=== PATIENT | female | born 1975 | race African-American/Black ===

== ENCOUNTER 2020-08-31 04:47 | Day surgery (SDC) | payer BC, OTHER ==
[2020-08-27 19:07] VITALS: BMI 23.8
[2020-08-31] MEDS ORDERED: LIDOCAINE HCL 1%, 10 MG/ML (20ML VIAL) ONE (08:53)
[2020-08-31] MEDS ORDERED: MIDAZOLAM HCL 2 MG/2 ML SINGLE DOSE VIAL ONE ×2 (09:31)
[2020-08-31] MEDS ORDERED: ceFAZolin 2 GRAM PREMIX BAG IVPB ONE (09:40)
[2020-08-31] MEDS ORDERED: LIDOCAINE HCL 1%, 10 MG/ML (20ML VIAL) ID ONE (09:57)
[2020-08-31] MEDS ORDERED: BUPIVACAINE HCL/PF 0.5% (5MG/ML) 10 ML VIAL IJ ONE (09:58)
[2020-08-31] MEDS ORDERED: ACETAMINOPHEN 1000 MG/100 ML VIAL (NON FORMULARY) IVPB ONE ×2 (10:35→11:06)
[2020-08-31] MEDS ORDERED: PROMETHAZINE HCL 25 MG/1 ML VIAL IVPUSH PRN (10:40)
[2020-08-31] MEDS ORDERED: oxyCODONE HCL 5 MG TABLET PO PRN (10:40)
[2020-08-31] MEDS ORDERED: ONDANSETRON 4 MG/2 ML VIAL IVPUSH PRN (10:40)
[2020-08-31] MEDS ORDERED: LACTATED RINGERS SOLUTION 1,000 ML IV SCH (10:45)
[2020-08-31] MEDS ORDERED: ACETAMINOPHEN 325 MG TABLET (FP) PO SCH (10:45)
[2020-08-31 13:47] VITALS: BP 128/76; PULSE 65; TEMP 97.3
== END 2020-08-31 13:40 | disposition home or self-care (01) ==
LOC: JASU-SURG 04:47
PROVIDERS: ATTEND Surgery
PROC: 07BH0ZX Excision of Right Inguinal Lymphatic, Open Approach, Diagnostic (ICD-10-PCS; principal; 2020-08-31 08:30)
DX: R59.0 Localized enlarged lymph nodes (principal)
CPT/HCPCS: 81025; 88305-TC; 88312-TC; 94760; J0131

== ENCOUNTER 2020-10-19 04:47 | Day surgery (SDC) | payer BC, OTHER ==
[2020-10-15 15:13] VITALS: BMI 25.2
[2020-10-19] MEDS ORDERED: ROCURONIUM BROMIDE 50 MG/5 ML SYRINGE ONE (11:11)
[2020-10-19] MEDS ORDERED: fentaNYL CITRATE 250 MCG/5 ML VIAL ONE (11:11)
[2020-10-19] MEDS ORDERED: MIDAZOLAM HCL 2 MG/2 ML SINGLE DOSE VIAL ONE (11:11)
[2020-10-19] MEDS ORDERED: PROPOFOL 20 ML ONE (11:11)
[2020-10-19] MEDS ORDERED: LIDOCAINE HCL 1%, 10 MG/ML (20ML VIAL) ONE (11:27)
[2020-10-19] MEDS ORDERED: ceFAZolin SODIUM 1 GM VIAL ONE (11:48)
[2020-10-19] MEDS ORDERED: ceFAZolin SODIUM 1 GM VIAL IVPB ONE (11:52)
[2020-10-19] MEDS ORDERED: LIDOCAINE HCL 1%, 10 MG/ML (20ML VIAL) INF ONE ×2 (12:06)
[2020-10-19] MEDS ORDERED: BUPIVACAINE HCL/PF 0.5% (5 MG/ML) 30 ML VIAL IJ ONE ×2 (12:07)
[2020-10-19] MEDS ORDERED: DEXAMETHASONE SOD PHOSPHATE 4 MG/1 ML VIAL ONE (12:17)
[2020-10-19] MEDS ORDERED: ONDANSETRON 4 MG/2 ML VIAL ONE ×2 (12:17→13:15)
[2020-10-19] MEDS ORDERED: BENZOIN/ALOE VERA/STORAX/TOLU 58 ML BOTTLE ONE (12:35)
[2020-10-19] MEDS ORDERED: NEOSTIGMINE METHYLSULFATE 0.5 MG/1 ML - 10 ML MDV ONE (12:41)
[2020-10-19] MEDS ORDERED: GLYCOPYRROLATE 0.2 MG/1 ML VIAL ONE (12:42)
[2020-10-19] MEDS ORDERED: ONDANSETRON 4 MG/2 ML VIAL IVPUSH PRN (13:31)
[2020-10-19] MEDS ORDERED: oxyCODONE HCL 5 MG TABLET PO PRN (13:31)
[2020-10-19] MEDS ORDERED: oxyCODONE HCL 5 MG TABLET PO ONE (15:45)
[2020-10-19] MEDS ORDERED: oxyCODONE HCL 5 MG TABLET ONE (15:46)
[2020-10-19 16:52] VITALS: BP 124/68; PULSE 66; TEMP 97.8
== END 2020-10-19 16:50 | disposition home or self-care (01) ==
LOC: JASU-SURG 04:47
PROVIDERS: ATTEND Surgery
PROC: 0JQD0ZZ Repair Right Upper Arm Subcutaneous Tissue and Fascia, Open Approach (ICD-10-PCS; 2020-10-19)
PROC: 0JBD0ZZ Excision of Right Upper Arm Subcutaneous Tissue and Fascia, Open Approach (ICD-10-PCS; 2020-10-19)
PROC: 0WQF0ZZ Repair Abdominal Wall, Open Approach (ICD-10-PCS; principal; 2020-10-19 12:00)
DX: K42.9 Umbilical hernia without obstruction or gangrene (principal); D17.21 Benign lipomatous neoplasm of skin and subcutaneous tissue of right arm
CPT/HCPCS: 84703; 94760

== ENCOUNTER 2023-10-16 09:07 | Day surgery (SDC) | payer OTHER ==
[2023-10-12 12:36] VITALS: BMI 27.6
[2023-10-16 11:29] VITALS: RESP 20; TEMP 97.8
[2023-10-16 11:56] VITALS: BP 100/60; PULSE 78
== END 2023-10-16 11:50 | disposition home or self-care (01) ==
LOC: FASU-ENDO 09:07
PROVIDERS: ATTEND Internal Medicine Gastroenterology
PROC: 0DBL8ZX Excision of Transverse Colon, Via Natural or Artificial Opening Endoscopic, Diagnostic (ICD-10-PCS; 2023-10-16)
PROC: 0DBM8ZX Excision of Descending Colon, Via Natural or Artificial Opening Endoscopic, Diagnostic (ICD-10-PCS; principal; 2023-10-16 10:53)
DX: Z12.11 Encounter for screening for malignant neoplasm of colon (principal); D12.3 Benign neoplasm of transverse colon; K63.5 Polyp of colon; K64.0 First degree hemorrhoids; K64.8 Other hemorrhoids; K57.30 Diverticulosis of large intestine without perforation or abscess without bleeding
CPT/HCPCS: 88305-TC